=== PATIENT | male | born 1995 | race Caucasian/White ===

== ENCOUNTER 2025-05-14 13:07 | Emergency (ER) | payer OTHER, SELFPAY ==
[2025-05-14 13:13] VITALS: BP 151/81
[2025-05-14] MEDS: DECADRON 10 MG PO (14:11)
--- NOTE | 2025-05-14 14:29 | ED.GENMED ---
History of Present Illness
General
Chief Complaint: Allergic Reaction
Source: patient
Exam Limitations: none
Time Seen by Provider: 05/14/25 13:47
Nursing documentation reviewed up to this point in time: agreed with
History of Present Illness
History of Present Illness:
30-year-old male presenting to the emergency department after eating a walnut and feeling some irritation at back of his throat. 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
which prompted come to the ER right away. Denies any significant swelling wheezing or abdominal pain. No lightheadedness.
Review of Systems
Review of Systems
Allergies reviewed?: Yes
All Other Systems: ROS reviewed and negative except as documented in HPI and ROS
Phy Exam
Physical Exam
Physical Exam:
GENERAL: Alert , in no apparent distress
EYE: pupils equal and reactive
NECK: Supple, no significant adenopathy.
ENT: o/p clr, mmm.
CARDIAC: Regular rate and rhythm .
LUNGS: Clear breath sounds bilaterally, no acute respiratory distress, no wheezes/rales/rhonchi
ABDOMEN: Soft, without focal tenderness, no r/g, no cvat
NEUROLOGICAL: Alert and oriented, no focal neuro deficits
SKIN: Warm and dry, skin intact.
MUSCULOSKELETAL: No edema, well perfused.
PSYCH: Normal and appropriate interaction.
Course
Orders/Labs/Results
Orders:
Orders
05/14/25 13:56
Dexamethasone [Decadron] 10 mg PO NOW STA
Vital Signs
Initial and Last Documented VS:
Initial Vital Signs
Temp Pulse Resp BP Pulse Ox
98.2 F 96 16 151/81 99
05/14/25 13:13 05/14/25 13:13 05/14/25 13:13 05/14/25 13:13 05/14/25 13:13
Last Documented Vital Signs
Temp Pulse Resp BP Pulse Ox
98.2 F 96 16 151/81 99
05/14/25 13:13 05/14/25 13:13 05/14/25 13:13 05/14/25 13:13 05/14/25 14:31
MDM/Problems Addressed
MDM/Problems Addressed:
30-year-old male presenting to the emergency department with concerns of potential allergic reaction to walnut prior to arrival. Here no obvious findings but was concerned of previous reaction. Did notice some swelling to his throat initially but
hard to appreciate on exam. Was given dose of steroid to ensure no progression of symptoms otherwise stable for outpatient follow-up. Return precautions given.
*Pulse Oximetry
SaO2: 99
Oxygen Mode of Delivery: Room air
Patient hypoxic: no (99)
*Critical Care Note
Total Time (30-74mins, 75-104mins- exclusive of procedures): Not Applicable
ED Attending Note
-
Portions of this chart may have been created with voice recognition software.� Occasional wrong word or��sound alike� substitutions may have occurred due to the inherent limitations of voice recognition software.
Discharge Plan
Departure
Patient Disposition: Home (Routine Discharge)
Date of Disposition: 05/14/25
Time of Disposition: 14:29
Patient with high blood pressure during this ER visit?: No
Condition: Good
Covid-19: Not Applicable
Discharge Problem:
Allergy
Instructions: Adverse Drug Reactions, Adult (DC)
Prescriptions:
No Action
Dulera 200-5 mcg/actuation Hfa Aerosol Inhaler
2 puff INHALATION BID
fexofenadine-pseudoephedrine [Indira-D 24 Hour] 180-240 mg Tablet Extended Release 24 Hr
1 tab PO DAILY PRN (Reason: allergies)
Referrals:
NONE,* [Family Provider, Internal Medicine]
Activity Restrictions/Additional Instructions:
You came to the emergency department today with concerns of potential allergic reaction. You are given dose of steroid to reduce risk of any recurrence or progression. Please feel closely as an outpatient. Return for any worsening, new or
concerning symptoms.
Interventions
Interventions:
*Risk Screen - Suicide Last Done: 05/14/25 13:13
*Neglect/Abuse Screening Last Done: 05/14/25 13:13
Discharge Date and Time
Print Language: CYPRIOT
[2025-05-14 14:48] VITALS: BP 124/67
== END 2025-05-14 14:50 | disposition home or self-care (01) ==
LOC: EMR 13:07
PROVIDERS: EMERGENCY PHYSICIAN Emergency Medicine
DX: R09.89 Other specified symptoms and signs involving the circulatory and respiratory systems (principal); T78.19XA Other adverse food reactions, not elsewhere classified, initial encounter; X58.XXXA Exposure to other specified factors, initial encounter
CPT/HCPCS: 99283